=== PATIENT | female | born 1940 | race Caucasian/White ===

== ENCOUNTER 2017-01-30 09:03 | Day surgery (SDC) | payer MEDICARE ==
--- NOTE | ~2017-01-30 | EGD ---
EGD REPORT [facility] [address] [id number] NAME: RONEN DOTSON : [birth year] STATUS : REG [facility] [place] PAT#: [id number] AGE: 76 ADM/REG DATE : 01/30/17 MR#: [id number] REPORT SERV DATE: 01/30/17 DICTATED BY: KAREN FRAUSTO DATE: 01/30/17 REPORT STATUS : Draft TRANSCRIBED BY: [employer] DATE: 01/30/17 [facility] Patient Name: Ronen Dotson Date of : 1940 Attending MD: SYED FRAUSTO MD Procedure Date No Time: 01/30/2017 Procedure: Colonoscopy Indications: Screening in patient at increased risk: Colorectal cancer in father 60 or older Referring MD: LISA MCQUEEN MD Medicines: See the Anesthesia note for documentation of the administered medications Complications: No immediate complications. Estimated blood loss: None. Procedure: Pre-Anesthesia Assessment: - ASA Grade Assessment: III - A patient with severe systemic disease. - Prior to the procedure, a History and Physical was performed, and patient medications and allergies were reviewed. The patient's tolerance of previous anesthesia was also reviewed. The risks and benefits of the procedure and the sedation options and risks were discussed with the patient. All questions were answered, and informed consent was obtained. Prior Anticoagulants: The patient has taken no previous anticoagulant or antiplatelet agents. After reviewing the risks and benefits, the patient was deemed in satisfactory condition to undergo the procedure. After I obtained informed consent, the scope was passed under direct vision. Throughout the procedure, the patient's blood pressure, pulse, and oxygen saturations were monitored continuously. The PCF [id number] was introduced through the anus and advanced to the terminal ileum. The ileocecal valve, appendiceal orifice, terminal ileum and rectum were photographed. The entire colon was examined. The colonoscopy was performed without difficulty. The patient tolerated the procedure well. The quality of the bowel preparation was adequate. Findings: The perianal and digital rectal examinations were normal. The terminal ileum appeared normal. A flat polyp was found in the cecum. The polyp was 20 mm in size. The polyp was removed with a saline injection-lift technique using a hot snare. Resection was complete, and retrieval was complete. Two hemostatic clips were successfully placed. This was done to prevent EGD REPORT [place] [id number] [facility] [place]. [address] NAME: RONEN DOTSON : [birth year] STATUS : REG [facility]#: [id number] AGE: 76 ADM/REG DATE : 01/30/17 MR#: [id number] REPORT SERV DATE: 01/30/17 DICTATED BY: KAREN FRAUSTO DATE: 01/30/17 REPORT STATUS : Draft [facility]ANSCRIBED BY: [facility] DATE: 01/30/17 bleeding. The colon (entire examined portion) was significantly tortuous. Non-bleeding internal hemorrhoids were found during retroflexion and were Grade I (internal hemorrhoids that do not prolapse). No other significant abnormalities were identified in a careful examination of the remainder of the colon. Impression: - The examined portion of the ileum was normal. - One 20 mm polyp in the cecum. Resected and retrieved. Clips were placed. - Tortuous colon. . - Non-bleeding internal hemorrhoids. Recommendation: - Patient has a contact number available for emergencies. The signs and symptoms of potential delayed complications were discussed with the patient. Return to normal activities tomorrow. Written discharge instructions were provided to the patient. - Regular diet. - Discharge patient to home. - Continue present medications. - Await pathology results. - Repeat colonoscopy in 3 years for surveillance. Procedure Code(s): --- Professional --- 24849, Colonoscopy, flexible, proximal to splenic flexure; with removal of tumor(s), polyp(s), or other lesion(s) by snare technique 11127, Colonoscopy, flexible, proximal to splenic flexure; with directed submucosal injection(s), any substance Diagnosis Code(s): --- Professional --- K64.0, First degree hemorrhoids D12.0, Benign neoplasm of cecum Q43.8, Other specified congenital malformations of intestine Z12.11, Encounter for screening for malignant neoplasm of colon Z80.0, Family history of malignant neoplasm of digestive organs CPT copyright 2013 [employer]. All rights reserved. The codes documented in this report are preliminary and upon c++ quant developer review may be revised to meet current compliance requirements. EGD REPORT [facility] [address] [address] NAME: RONEN DOTSON : [birth year] STATUS : REG [facility] [place] PAT#: [id number] AGE: 76 ADM/REG DATE : 01/30/17 MR#: [id number] REPORT SERV DATE: 01/30/17 DICTATED BY: KAREN FRAUSTO DATE: 01/30/17 REPORT STATUS : Draft TRANSCRIBED BY: [employer] DATE: 01/30/17 SYED FRAUSTO MD 01/30/2017 11:10 AM This report has been signed electronically. Number of Addenda: 0 Note Initiated On: 01/30/2017 10:30 AM Scope Withdrawal Time 0 hours 14 minutes 42 seconds [address] [id number]
[~2017-01-30 09:03] MED LIST: ASABAYER PO; DSS PO; FISH-EPA1000 MG PO; MEVACOR PO; MULTIPLE VIT PO; NORV25 PO; OS500+D PO
== END 2017-01-30 23:59 | disposition home or self-care (01) ==
LOC: DMU 09:03
PROVIDERS: Internal Medicine Gastroenterology
PROC: 3E0H8GC Introduction of Other Therapeutic Substance into Lower GI, Via Natural or Artificial Opening Endoscopic (ICD-10-PCS; 2017-01-30)
PROC: 0DBH8ZX Excision of Cecum, Via Natural or Artificial Opening Endoscopic, Diagnostic (ICD-10-PCS; principal; 2017-01-30 10:30)
DX: Z12.11 Encounter for screening for malignant neoplasm of colon (principal); D12.0 Benign neoplasm of cecum; K64.0 First degree hemorrhoids; I10 Essential (primary) hypertension; Q43.8 Other specified congenital malformations of intestine; E78.00 Pure hypercholesterolemia, unspecified; M19.90 Unspecified osteoarthritis, unspecified site; D64.9 Anemia, unspecified; Z86.73 Personal history of transient ischemic attack (TIA), and cerebral infarction without residual deficits; Z90.710 Acquired absence of both cervix and uterus; Z98.890 Other specified postprocedural states; Z80.0 Family history of malignant neoplasm of digestive organs; Z88.8 Allergy status to other drugs, medicaments and biological substances
CPT/HCPCS: 88305